=== PATIENT | female | born 1980 | race Caucasian/White ===

== ENCOUNTER 2019-07-09 14:43 | Observation (INO) ==
[2019-07-09] MEDS ORDERED: ONDANSETRON 4 MG/2 ML VIAL IV PRN (15:57)
[2019-07-09 16:07] LABS: Basophils % 0.3 % (0.0-0.8); Eosinophils # 0.1 10*3/uL (0.0-0.87); Hematocrit 34.5 VOL% (35.7-47.0); Hemoglobin 11.1 GM/DL (12.0-16.0); Immature Granulocytes % 0.7 %; Immature Granulocytes Absolute 0.06 #; Lymphocytes # 1.2 10*3/uL (1.4-4.0); Lymphocytes % 13.9 % (21.3-54.2); Mean Corpuscular HGB Conc 32.2 GM/DL (32-36); Mean Corpuscular Volume 92.5 FL (87-102); Mean Platelet Volume 9.3 FL (9.6-12.0); Monocytes % 7.2 % (1.7-12.7); Neutrophils % 76.9 % (38.7-73.9); Platelet Count 277 T/CUMM (130-400); Red Blood Count 3.73 MC/CUMM (3.8-5.5); Red Cell Distribution Width 13.2 % (9.3-17.3); White Blood Count 8.6 T/CUMM (4-12)
[2019-07-09 16:21] LABS: INR 0.9; PT Patient Result 9.4 SECS (9.6-12.2)
[2019-07-09 16:42] LABS: Alanine Aminotransferase 27 U/L (13-56); Alkaline Phosphatase 78 U/L (45-117); Aspartate Amino Transferase 16 U/L (0-37); Bilirubin,Total < 0.39 MG/DL (0.2-1.0); Blood Urea Nitrogen 9 MG/DL (7-18); Calcium 8.8 MG/DL (8.5-10.1); Estimated Glom Filtration Rate 121 ML/MIN; Glucose 94 MG/DL (74-106); Osmolality,Calculated 275.5 MOS/KG (273-304); Total Protein 6.5 G/DL (6.4-8.3)
[2019-07-09] MEDS ORDERED: INFLUENZA VIRUS VACCINE 0.5 ML SYRINGE IM ONE (17:03)
[2019-07-09] MEDS: RIVAROXABAN 15 MG TABLET PO SCH (17:13)
[2019-07-09] MEDS ORDERED: ESCITALOPRAM 10 MG TABLET PO SCH (21:00)
[2019-07-09] MEDS ORDERED: ARIPiprazole 2 MG TABLET PO SCH (21:00)
[2019-07-09] MEDS: POLYETHYLENE GLYCOL POWDER 17 GM PACK PO PRN (21:16)
[2019-07-09] MEDS: traMADol 50 MG TABLET PO PRN (21:23)
[2019-07-10] MEDS: RIVAROXABAN 15 MG TABLET PO SCH (09:05)
[2019-07-10] MEDS: PANTOPRAZOLE 40 MG TABLET PO SCH ×2 (09:05→09:06)
[2019-07-10] MEDS: traMADol 50 MG TABLET PO PRN (09:13)
[2019-07-10 11:34] VITALS: BP 120/66
[2019-07-10] MEDS: POLYETHYLENE GLYCOL POWDER 17 GM PACK PO PRN (12:44)
== END 2019-07-10 13:19 | disposition home or self-care (01) ==
LOC: N.ED 14:43 → N.EDINP 14:43 → N.2W 16:42
PROVIDERS: ADMIT Internal Medicine Geriatric Medicine; ATTEND Internal Medicine Geriatric Medicine